=== PATIENT | female | born 1975 | race Caucasian/White ===

== ENCOUNTER → 2016-05-03 | Outpatient (CLI) | payer OTHER | LOC: YCFC.O 08:01 | PROVIDERS: ATTEND Nurse Practitioner Family | DX: D64.9 Anemia, unspecified (principal) ==

== ENCOUNTER → 2016-05-07 | Outpatient (CLI) | payer OTHER ==
--- NOTE | 2016-05-07 12:07 | RAD ---
EXAM DESCRIPTION: Bilateral hip series CLINICAL HISTORY: Bilateral hip pain COMPARISON: None. TECHNIQUE: Two views of the bilateral hips are submitted for interpretation. FINDINGS: Joint spaces are preserved. There is no fracture, dislocation, obvious joint effusion or suspicious radiopaque foreign body. Soft tissues are unremarkable. IMPRESSION: No significant abnormality. Electronically signed by: Jake Hernández MD 05/07/2016 12:05
== END ==
LOC: RAD 11:31
PROVIDERS: ATTEND Nurse Practitioner Family
DX: M25.559 Pain in unspecified hip (principal)

== ENCOUNTER → 2016-05-11 | Outpatient (CLI) | payer OTHER | LOC: YCFC.O 16:46 | PROVIDERS: ATTEND Nurse Practitioner Family | DX: R50.9 Fever, unspecified (principal) ==

== ENCOUNTER → 2016-08-02 | Outpatient (CLI) | payer OTHER | LOC: YCFC.O 10:25 | PROVIDERS: ATTEND Nurse Practitioner Family | DX: D50.9 Iron deficiency anemia, unspecified (principal) ==

== ENCOUNTER 2016-09-19 21:10 | Emergency (ER) | payer OTHER ==
[2016-09-19 21:30] VITALS: TEMP 99.6; O2SAT 97
--- NOTE | 2016-09-19 21:46 | ED.PDOC ---
History of Present Illness - General Chief Complaint: Problem Stated Complaint: lower back pain Time Seen by Provider: 09/19/16 21:36 Source: patient Exam Limitations: no limitations - History of Present Illness Initial Comments: Rose Carvalho 41 y/o female stated that she had been having cramping pains both sides of her back radiating to lower abdominal area Also with frequency and burning sensation on urination going on the last 4 days. Timing/Duration: intermittent - 4 days ago, other Severity: moderate Improving Factors: nothing Worsening Factors: nothing Associated Symptoms: denies symptoms Allergies/Adverse Reactions: Allergies NO KNOWN ALLERGY Allergy (Verified 09/19/16 21:41) Home Medications: Ambulatory Orders ARIPiprazole [Abilify] 5 mg PO DAILY 09/23/14 Atenolol 100 mg PO DAILY 09/23/14 Cyclobenzaprine HCl [Flexeril] 10 mg PO TID PRN 09/23/14 Duloxetine HCl [Cymbalta] 60 mg PO DAILY 09/23/14 Ferrous Sulfate Dried [Iron Slow Release] 325 mg PO DAILY 09/23/14 Multiple Vitamin [Multivitamins] 1 ea PO DAILY 09/23/14 Buspirone HCl 15 mg PO BID 09/19/16 Lisinopril 20 mg PO DAILY 09/19/16 Meloxicam 7.5 mg PO DAILY 09/19/16 Methocarbamol [Robaxin] 750 mg PO BID #10 tab 09/19/16 Omeprazole 20 mg PO BID 09/19/16 Thyroid [[place] Thyroid] 30 mg PO DAILY 09/19/16 diphenhydrAMINE HCL [Benadryl] 25 mg PO BEDTIME #30 cap 09/19/16 Review of Systems - Review of Systems Constitutional: States: no symptoms reported EENTM: States: no symptoms reported Respiratory: States: no symptoms reported Cardiology: States: no symptoms reported Gastrointestinal/Abdominal: States: no symptoms reported Genitourinary: States: no symptoms reported Musculoskeletal: States: other - muscle cramps Skin: States: no symptoms reported Neurological: States: no symptoms reported Endocrine: States: no symptoms reported Hematologic/Lymphatic: States: no symptoms reported Past Medical History (General) - Patient Medical History Hx Seizures: No Hx Stroke: No Hx Asthma: No Hx of COPD: No Hx Cardiac Disorders: No Hx Congestive Heart Failure: No Hx Pacemaker: No Hx Hypertension: Yes Hx Thyroid Disease: Yes Hx Diabetes: No Hx MRSA: No Hx Other PMH: Yes - bipolar disorder Surgical History: appendectomy, tonsillectomy, other - Vaccination History Hx Tetanus, Diphtheria Vaccination: Yes Hx Influenza Vaccination: No - Social History Hx Tobacco Use: No Hx Alcohol Use: Yes - occ Hx Substance Use: No Hx Physical Abuse: No Hx Emotional Abuse: No Hx Suspected Abuse: No - Activities of Daily Living Grooming Ability: Independent Eating (Feeding) Ability: Independent Toileting Ability: Independent - Female History Hx Last Menstrual Period: 09/13/16 Patient : No Family Medical History - Family History Mother Family History: No Known Living Status: Still Living Hx Family Asthma: No Hx Family Congestive Heart Failure: No Hx Family Hypertension: Yes Hx Family Stroke: Yes Hx Cardiac Disease: Yes - dad-[place] 47 y/o Hx Family Diabetes: Yes Hx Family Cancer: Yes Physical Exam - Physical Exam General Appearance: Alert, Comfortable, No apparent distress Eye Exam: bilateral normal Ears, Nose, Throat: hearing grossly normal, normal pharynx, abnormal TM (L) - perforation chronic Neck: non-tender, full range of motion, supple Respiratory: chest non-tender, lungs clear, normal breath sounds, no respiratory distress Cardiovascular/Chest: normal peripheral pulses, regular rate, rhythm, no edema, no gallop, no murmur Peripheral Pulses: radial,right: 2+, radial,left: 2+ Gastrointestinal/Abdominal: normal bowel sounds, non tender, soft Back Exam: normal inspection, CVA tenderness (R), CVA tenderness (L) Extremity: normal range of motion, non-tender, normal inspection, no pedal edema , no calf tenderness Neurologic: no motor/sensory deficits, alert, normal mood/affect, oriented x 3 Skin Exam: normal color, warm/dry Lymphatic: no adenopathy Progress - Results/Orders Results/Orders: Vital Signs - 8 hr 09/19/16 21:23 Temperature 99.6 F Pulse Rate [ 94 H left] Respiratory 18 Rate Blood Pressure 154/92 [left] O2 Sat by Pulse 97 Oximetry Laboratory Results Urine Color Yellow (Yellow) 09/19/16 21:29 Urine Appearance Clear (Clear) 09/19/16 21:29 Urine pH 7.0 (4.5-7.8) 09/19/16 21:29 Ur Specific [place] 1.020 (1.005-1.030) 09/19/16 21:29 Urine Protein Negative mg/dL 09/19/16 21:29 Urine Glucose (UA) Negative mg/dL (Negative) 09/19/16 21:29 Urine Ketones Negative mg/dL (NEGATIVE) 09/19/16 21:29 Urine Blood Negative (Negative) 09/19/16 21:29 Urine Nitrite Negative 09/19/16 21:29 Urine Bilirubin Negative (NEGATIVE) 09/19/16 21:29 Urine Urobilinogen 0.2 mg/dL (0.2-1.0) 09/19/16 21:29 Ur Leukocyte Esterase Negative (Negative) 09/19/16 21:29 Urine RBC 0 /hpf 09/19/16 21:29 Urine WBC 0-1 /hpf 09/19/16 21:29 Ur Epithelial Cells 3-5 /hpf 09/19/16 21:29 Urine Bacteria Rare 09/19/16 21:29 Departure - Departure Clinical Impression: Flank strain Qualifiers: Encounter type: initial encounter Qualified Code(s): S39.011A - Strain of muscle, fascia and tendon of abdomen, initial encounter Time of Disposition: 22:10 Disposition: Discharge to Home or Self Care Condition: Fair Departure Forms: ED Discharge - Pt. Copy, Patient Portal Self Enrollment Instructions: DI for Back Strain or Sprain, Muscle Strain Referrals: Karina Mckeon NP [Primary Care Provider] - 1-2 Weeks Prescriptions: diphenhydrAMINE HCL [Benadryl] 25 mg PO BEDTIME #30 cap Methocarbamol [Robaxin] 750 mg PO BID #10 tab Home Medications: Ambulatory Orders ARIPiprazole [Abilify] 5 mg PO DAILY 09/23/14 Atenolol 100 mg PO DAILY 09/23/14 Cyclobenzaprine HCl [Flexeril] 10 mg PO TID PRN 09/23/14 Duloxetine HCl [Cymbalta] 60 mg PO DAILY 09/23/14 Ferrous Sulfate Dried [Iron Slow Release] 325 mg PO DAILY 09/23/14 Multiple Vitamin [Multivitamins] 1 ea PO DAILY 09/23/14 Buspirone HCl 15 mg PO BID 09/19/16 Lisinopril 20 mg PO DAILY 09/19/16 Meloxicam 7.5 mg PO DAILY 09/19/16 Methocarbamol [Robaxin] 750 mg PO BID #10 tab 09/19/16 Omeprazole 20 mg PO BID 09/19/16 Thyroid [[place] Thyroid] 30 mg PO DAILY 09/19/16 diphenhydrAMINE HCL [Benadryl] 25 mg PO BEDTIME #30 cap 09/19/16 Additional Instructions: Return to emergency room as needed;Follow up with primary md 09/24 call for appointment
[2016-09-19] MEDS: KETOROLAC TROMETHAMINE INJ 30 MG/ML VIAL IM ONE (22:18)
[2016-09-19] MEDS: CYCLOBENZAPRINE TAB (ER DISP) 10 MG TAB PO ONE (22:18)
[2016-09-19] MEDS: diphenhydrAMINE HCL 50 MG/ML VIAL IM ONE (22:18)
[2016-09-19 22:37] VITALS: BP 163/107
== END 2016-09-19 22:37 | disposition home or self-care (01) ==
LOC: ER 21:10
DX: S39.011A Strain of muscle, fascia and tendon of abdomen, initial encounter (principal); I10 Essential (primary) hypertension; E07.9 Disorder of thyroid, unspecified; F31.9 Bipolar disorder, unspecified; Z79.899 Other long term (current) drug therapy; X58.XXXA Exposure to other specified factors, initial encounter
CPT/HCPCS: 81001; J1200; J1885

== ENCOUNTER → 2016-10-31 | Outpatient (CLI) | payer OTHER | LOC: YCFC.O 07:57 | PROVIDERS: ATTEND Nurse Practitioner Family | DX: D50.9 Iron deficiency anemia, unspecified (principal); R25.2 Cramp and spasm; E78.2 Mixed hyperlipidemia; E03.9 Hypothyroidism, unspecified ==

== ENCOUNTER → 2016-11-13 | Outpatient (CLI) | payer OTHER | LOC: YCFC.O 11:33 | PROVIDERS: ATTEND Nurse Practitioner Family | DX: R30.0 Dysuria (principal) ==

== ENCOUNTER 2017-01-17 19:23 | Emergency (ER) | payer OTHER ==
[2017-01-17 19:39] VITALS: O2SAT 98
[2017-01-17] MEDS ORDERED: MECLIZINE HCL 12.5 MG TAB PO ONE (19:41)
[2017-01-17] MEDS ORDERED: cloNIDine HCL 0.1 MG TAB PO ONE (19:41)
--- NOTE | 2017-01-17 20:22 | CT ---
EXAM DESCRIPTION: Head CLINICAL HISTORY: dizziness, headache, hx of sinusitis chronic COMPARISON: None Available. TECHNIQUE: Contiguous axial images of the brain were obtained without the administration of intravenous contrast. This exam was performed according to our departmental dose-optimization program, which includes automated exposure control, adjustment of the mA and/or kV according to patient size and/or use of iterative reconstruction technique. FINDINGS: There is no acute intracranial hemorrhage or mass effect. Ventricular system is within normal limits. There is adequate juarez-white matter differentiation. There is no skull fracture. There is mucoperiosteal thickening of the paranasal sinuses compatible chronic sinusitis changes. There is evidence of prior left mastoidectomy. Focal opacification within the left mastoid air cells could be related to prior surgery. IMPRESSION: No acute intracranial abnormalities. Chronic sinusitis changes. Electronically signed by: Colby Hollingsworth MD 01/17/2017 8:21 PM CDT
[2017-01-17] MEDS ORDERED: predniSONE 20 MG TAB PO ONE (20:41)
--- NOTE | 2017-01-17 20:49 | ED.PDOC ---
History of Present Illness - General Chief Complaint: Headache Stated Complaint: headache and dizziness Time Seen by Provider: 01/17/17 19:30 Source: patient Exam Limitations: no limitations - History of Present Illness Initial Comments: the patient is a 41-year-old female presenting to the emergency room secondary to headache and dizziness. This is been going on for about 6 hours. She reports some difficulty being able to focus. Blood pressures are in the 160s to 170s on the systolic end. She does have a history of significant hypertension and does take 2 medications for it. No syncope or near syncope. No falls. No focal neurological deficits otherwise. She does have a history of chronic sinusitisand she has had a surgery for a left mastoiditis in the past. Timing/Duration: 4-6 hours Severity: mild Improving Factors: nothing Worsening Factors: nothing Associated Symptoms: denies symptoms Allergies/Adverse Reactions: Allergies NO KNOWN ALLERGY Allergy (Verified 09/19/16 21:41) Home Medications: Ambulatory Orders ARIPiprazole [Abilify] 5 mg PO DAILY 09/23/14 Atenolol 100 mg PO DAILY 09/23/14 Cyclobenzaprine HCl [Flexeril] 10 mg PO TID PRN 09/23/14 Duloxetine HCl [Cymbalta] 60 mg PO DAILY 09/23/14 Ferrous Sulfate Dried [Iron Slow Release] 325 mg PO DAILY 09/23/14 Multiple Vitamin [Multivitamins] 1 ea PO DAILY 09/23/14 Buspirone HCl 15 mg PO BID 09/19/16 Lisinopril 20 mg PO DAILY 09/19/16 Meloxicam 7.5 mg PO DAILY 09/19/16 Omeprazole 20 mg PO BID 09/19/16 Thyroid [[place] Thyroid] 30 mg PO DAILY 09/19/16 levoFLOXacin [Levaquin] 500 mg PO DAILY #7 tab 01/17/17 predniSONE [Prednisone] 20 mg PO DAILY #7 tab 01/17/17 Review of Systems - Review of Systems Constitutional: States: malaise EENTM: States: see HPI Respiratory: States: no symptoms reported Cardiology: States: no symptoms reported Gastrointestinal/Abdominal: States: no symptoms reported Genitourinary: States: no symptoms reported Musculoskeletal: States: no symptoms reported Skin: States: no symptoms reported Neurological: States: anxiety, other - izziness Endocrine: States: no symptoms reported All other Systems: No Change from Baseline Past Medical History (General) - Patient Medical History Hx Seizures: No Hx Stroke: No Hx Asthma: No Hx of COPD: No Hx Cardiac Disorders: No Hx Congestive Heart Failure: No Hx Pacemaker: No Hx Hypertension: Yes Hx Thyroid Disease: Yes Hx Diabetes: No Hx MRSA: No Surgical History: appendectomy, tonsillectomy - Vaccination History Hx Tetanus, Diphtheria Vaccination: No Hx Influenza Vaccination: No Hx Pneumococcal Vaccination: No Immunizations Up to Date: Yes - Social History Hx Tobacco Use: No Hx Alcohol Use: No Hx Substance Use: No Hx Depression: Yes Hx Physical Abuse: No Hx Emotional Abuse: No Hx Suspected Abuse: No - Female History Patient is a Female of Child Bearing Age (10 -59 yrs old): Yes Hx Last Menstrual Period: 09/13/16 Patient : No Family Medical History - Family History Mother Family History: No Known Living Status: Still Living Hx Family Asthma: No Hx Family Congestive Heart Failure: No Hx Family Hypertension: Yes Hx Family Stroke: Yes Hx Cardiac Disease: Yes - dad-[place] 47 y/o Hx Family Diabetes: Yes Hx Family Cancer: Yes Physical Exam - Physical Exam General Appearance: Alert, Comfortable, No apparent distress Eye Exam: bilateral normal - this diagnosis does not appear significantly abnormal. Ears, Nose, Throat: hearing grossly normal, normal pharynx, other - left tympanic membrane is scarred from previousruptures. Neck: full range of motion, supple Respiratory: chest non-tender, lungs clear, normal breath sounds, no respiratory distress, no accessory muscle use Cardiovascular/Chest: normal peripheral pulses, regular rate, rhythm, no edema Peripheral Pulses: radial,right: 2+, radial,left: 2+, dorsalis pedis,right: 2+, dorsalis pedis,left: 2+ Gastrointestinal/Abdominal: non tender, soft Rectal Exam: deferred Extremity: non-tender, normal inspection, no pedal edema, normal capillary refill Neurologic: no motor/sensory deficits, alert, normal mood/affect, oriented x 3, other - HINTS exam is positive for lateralizing to the left on the head impulse test. No vertical skew deviation is present. Nystagmus appears grossly normal. Skin Exam: normal color Comments: Vital Signs - 8 hr 01/17/17 01/17/17 19:36 20:24 Temperature 98.5 F Pulse Rate [ 90 99 H Left Radial] Respiratory 18 18 Rate Blood Pressure 158/104 162/111 [Left Arm] O2 Sat by Pulse 98 98 Oximetry Progress - Progress Progress: 01/17/17 20:51 the patient's a 41-year-old female presenting with what is most likely an acute vestibular syndrome. The patient does have chronic sinusitis. The patient will be placed on prednisone and Levaquin for the next week. Meclizine will also be written for dizziness for as needed use. She needs to follow up with her primary care doctor next week. ER warnings were given. - Results/Orders Results/Orders: Laboratory Tests 01/17/17 01/17/17 01/17/17 19:45 19:45 19:51 WBC 8.1 RBC 3.87 L Hgb 10.9 L Hct 31.8 L MCV 82.1 MCH 28.1 MCHC 34.3 RDW 13.7 Plt Count 288 MPV 7.5 Absolute Neuts (auto) 5.00 Absolute Lymphs (auto) 2.20 Absolute Monos (auto) 0.50 Absolute Eos (auto) 0.20 Absolute Basos (auto) 0.10 Neutrophils % 62.2 Lymphocytes % 27.5 Monocytes % 6.5 Eosinophils % 2.7 Basophils % 1.1 Sodium Potassium Chloride Carbon Dioxide Anion Gap BUN Creatinine BUN/Creatinine Ratio Random Glucose Serum Osmolality Calcium Magnesium Total Bilirubin AST ALT Alkaline Phosphatase Serum Total Protein Albumin Globulin Albumin/Globulin Ratio Urine Color Yellow Urine Appearance Clear Urine pH 5.5 Ur Specific [place] 1.025 Urine Protein Trace Urine Glucose (UA) Negative Urine Ketones Negative Urine Blood Trace-intact H Urine Nitrite Negative Urine Bilirubin Negative Urine Urobilinogen 0.2 Ur Leukocyte Esterase Negative Urine RBC 1-3 Urine WBC 3-5 H Ur Epithelial Cells 5-10 Amorphous Sediment Trace Urine Bacteria 2+ H Urine Mucus Trace Urine HCG, Qual Negative 01/17/17 19:51 WBC RBC Hgb Hct MCV MCH MCHC RDW Plt Count MPV Absolute Neuts (auto) Absolute Lymphs (auto) Absolute Monos (auto) Absolute Eos (auto) Absolute Basos (auto) Neutrophils % Lymphocytes % Monocytes % Eosinophils % Basophils % Sodium 137 Potassium 3.7 Chloride 103 Carbon Dioxide 26 Anion Gap 11.7 L BUN 11 Creatinine 0.76 BUN/Creatinine Ratio 14.5 Random Glucose 91 Serum Osmolality 272.8 L Calcium 9.1 Magnesium 1.9 Total Bilirubin 0.4 AST 26 ALT 26 Alkaline Phosphatase 87 Serum Total Protein 7.4 Albumin 3.7 Globulin 3.7 H Albumin/Globulin Ratio 1.0 L Urine Color Urine Appearance Urine pH Ur Specific [place] Urine Protein Urine Glucose (UA) Urine Ketones Urine Blood Urine Nitrite Urine Bilirubin Urine Urobilinogen Ur Leukocyte Esterase Urine RBC Urine WBC Ur Epithelial Cells Amorphous Sediment Urine Bacteria Urine Mucus Urine HCG, Qual head CT is significant for chronic sinusitis and previous changes fromprevious mastoid surgery. No evidence of any acute stroke. Departure - Departure Clinical Impression: Acute vestibular syndrome Chronic sinusitis Qualifiers: Sinusitis location: ethmoidal Qualified Code(s): J32.2 - Chronic ethmoidal sinusitis Disposition: Discharge to Home or Self Care Condition: Fair Departure Forms: ED Discharge - Pt. Copy, Patient Portal Self Enrollment Instructions: DI for Sinusitis, DI for Vertigo Diet: regular diet Activity: increase activity as tolerated Referrals: Karina Mckeon NP [Primary Care Provider] - 1-2 Weeks Prescriptions: levoFLOXacin [Levaquin] 500 mg PO DAILY #7 tab predniSONE [Prednisone] 20 mg PO DAILY #7 tab Home Medications: Ambulatory Orders ARIPiprazole [Abilify] 5 mg PO DAILY 09/23/14 Atenolol 100 mg PO DAILY 09/23/14 Cyclobenzaprine HCl [Flexeril] 10 mg PO TID PRN 09/23/14 Duloxetine HCl [Cymbalta] 60 mg PO DAILY 09/23/14 Ferrous Sulfate Dried [Iron Slow Release] 325 mg PO DAILY 09/23/14 Multiple Vitamin [Multivitamins] 1 ea PO DAILY 09/23/14 Buspirone HCl 15 mg PO BID 09/19/16 Lisinopril 20 mg PO DAILY 09/19/16 Meloxicam 7.5 mg PO DAILY 09/19/16 Omeprazole 20 mg PO BID 09/19/16 Thyroid [[place] Thyroid] 30 mg PO DAILY 09/19/16 levoFLOXacin [Levaquin] 500 mg PO DAILY #7 tab 01/17/17 predniSONE [Prednisone] 20 mg PO DAILY #7 tab 01/17/17 Additional Instructions: the patient's a 41-year-old female presenting with what is most likely an acute vestibular syndrome. The patient does have chronic sinusitis. The patient will be placed on prednisone and Levaquin for the next week. Meclizine will also be written for dizziness for as needed use. She needs to follow up with her primary care doctor next week. ER warnings were given. blood pressures will likely remain somewhat elevated while she is having dizziness and on the prednisone.
[2017-01-17 21:08] VITALS: BP 161/103; TEMP 97.9
== END 2017-01-17 21:08 | disposition home or self-care (01) ==
LOC: ER 19:23
DX: J32.2 Chronic ethmoidal sinusitis (principal); H81.90 Unspecified disorder of vestibular function, unspecified ear; I10 Essential (primary) hypertension; E07.9 Disorder of thyroid, unspecified; F32.9 Major depressive disorder, single episode, unspecified; Z79.899 Other long term (current) drug therapy
CPT/HCPCS: 70450; 80053; 81001; 81025; 83735; 84443; 85025; J7512

== ENCOUNTER → 2017-03-18 | Outpatient (CLI) | payer OTHER | END | disposition home or self-care (01) | LOC: YCFC.O 08:08 | DX: I10 Essential (primary) hypertension (principal) ==

== ENCOUNTER → 2017-05-01 | Outpatient (CLI) | payer OTHER ==
--- NOTE | 2017-05-02 08:48 | MAM ---
EXAM DESCRIPTION: 3D Screening BILATERAL : Digital Mammography. CLINICAL HISTORY: 42 years Female SCREENING . No complaints. Remote family history of breast cancer. Postmenopausal. No HRT. COMPARISON: Baseline study at this facility. No prior reports available. Reports from prior examinations also reviewed. Report from prior examination also reviewed. TECHNIQUE: Bilateral CC and MLO projection full-field images, 3-D tomosynthesis digital mammographic technique. Also bilateral synthesized CC/ MLO full-field images . CAD not utilized. FINDINGS: The breast parenchymal density pattern is: Heterogeneously dense breast tissue, which may obscure small masses. No skin thickening or nipple retraction bilateral solitary microcalcifications. Bilateral skin calcifications. Broad area of focal asymmetry in the middle third of the left breast at the 230 clock position approximately 8 cm from the nipple. Not associated with microcalcifications. Focal area of focal asymmetry at the 1200 clock position of the right breast in the middle third approximately 6 cm from the nipple. Not associated with microcalcifications. No suspicious microcalcifications bilaterally. IMPRESSION: BI-RADS CATEGORY: 0 - INCOMPLETE- Need additional imaging evaluation. FOLLOW-UP: Recall for additional imagin-D tomosynthesis bilateral full field LM images. Followed by targeted bilateral breast ultrasound regions of interest. Written communication concerning the IMPRESSION and Follow-up, will be mailed to the patient and referring health care provider. Electronically signed by: Dilan Estrada MD 05/02/2017 8:47 AM [facility]
== END | disposition home or self-care (01) ==
LOC: MAMMO 09:00
DX: Z12.31 Encounter for screening mammogram for malignant neoplasm of breast (principal)

== ENCOUNTER → 2017-05-09 | Outpatient (CLI) | payer OTHER ==
--- NOTE | 2017-05-13 07:37 | RAD ---
EXAM DESCRIPTION: Hand,Right 3 Views CLINICAL HISTORY: PAIN IN RIGHT HAND COMPARISON: None. IMPRESSION: 3 views of the right hand show no evidence of acute fracture, focal bone destruction, or joint dislocation. Soft tissues are unremarkable. No significant joint space narrowing or periarticular erosive changes are seen. Electronically signed by: Aba Brewster MD 05/13/2017 7:36 AM [facility]
== END ==
LOC: RAD 07:58
PROVIDERS: ATTEND Orthopaedic Surgery
DX: M79.641 Pain in right hand (principal)

== ENCOUNTER → 2017-05-15 | Outpatient (CLI) | payer OTHER ==
--- NOTE | 2017-05-15 19:20 | US ---
EXAM DESCRIPTION: Breast,Bilateral: Ultrasound CLINICAL HISTORY: 42 yearsFemaleABNORMAL MAMMO COMPARISON: Digital 3-D tomosynthesis diagnostic bilateral mammography on this visit. Bilateral 3-D tomosynthesis screening study 05/02/2017. TECHNIQUE: Transcutaneous scanning of the bilateral breasts utilizing two-dimensional and Doppler modes. Scanning performed by the [facility] administrator only. FINDINGS: Scanning at the 1200 clock position of the right breast 6 cm from the nipple. Hypoechoic mass with partially circumscribed and partially lobulated borders, mostly solid. Parallel orientation and posterior acoustic enhancement features. Dimensions are 1.3 x 0.9 cm. Nonvascular. 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 Second hypoechoic solid nodule or cyst in the nearby tissues measures 5.1 x 3.7 mm. Well circumscribed margins. Parallel orientation, posterior enhancement features and nonvascular. No simple cysts. No skin changes. No large calcifications or parenchymal edema. Scanning at the 300 clock position of the left breast, 8 cm from the nipple. Hypoechoic solid mass versus slightly hypoechoic cyst. Dimensions are 5.7 x 4.2 mm. Well circumscribed margins, parallel orientation, and posterior enhancement features. Nonvascular. No discrete solid mass, simple cyst, large calcifications or parenchymal edema. No overlying skin changes or abnormal vascularity. IMPRESSION: 1. Bi-Rads Category 3: Probably Benign Findings. 2. Please refer to bilateral 3-D tomosynthesis diagnostic examination and report on this visit. The FINDINGS and the FOLLOW-UP plan were reviewed in person with the patient after the examination. Written communication explaining the IMPRESSION and FOLLOW-UP will be mailed to the patient and referring care provider. Electronically signed by: Dilan Estrada MD 05/15/2017 7:19 PM DEV MANAGER Workstation: [employer]
--- NOTE | 2017-05-16 09:26 | MAM ---
EXAM DESCRIPTION: 3D Diagnostic, Bilateral: Digital Mammography CLINICAL HISTORY: 42 yearsFemaleABNORMAL MAMMO . Bilateral focal asymmetries in the breasts.. COMPARISON: 3-D digital screening bilateral study 05/01/2017. Bilateral targeted breast ultrasound following this examination. Report from prior examination also reviewed. TECHNIQUE: Bilateral LM projection full-field images, 3-D tomosynthesis digital mammographic technique. Also bilateral synthesized LM full-field images. CAD not utilized. FINDINGS: The breast parenchymal density pattern is: Heterogeneously dense breast tissue, which may obscure small masses. No skin thickening or nipple retraction focal asymmetry is again noted in the middle third of the right breast 1200 clock position. Focus asymmetry also in the 300 clock position of the left breast. No definite mass density or microcalcifications. ULTRASOUND: Scanning at the 1200 clock position of the right breast 6 cm from the nipple. Hypoechoic mass with partially circumscribed and partially lobulated borders, mostly solid. Parallel orientation and posterior acoustic enhancement features. Dimensions are 1.3 x 0.9 cm. Nonvascular. 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 Second hypoechoic solid nodule or cyst in the nearby tissues measures 5.1 x 3.7 mm. Well circumscribed margins. Parallel orientation, posterior enhancement features and nonvascular. No simple cysts. No skin changes. No large calcifications or parenchymal edema. Scanning at the 300 clock position of the left breast, 8 cm from the nipple. Hypoechoic solid mass versus slightly hypoechoic cyst. Dimensions are 5.7 x 4.2 mm. Well circumscribed margins, parallel orientation, and posterior enhancement features. Nonvascular. No discrete solid mass, simple cyst, large calcifications or parenchymal edema. No overlying skin changes or abnormal vascularity IMPRESSION: BI-RADS CATEGORY: 3 - PROBABLY BENIGN. Management: Short interval (6-month) follow-up digital mammography and continued surveillance targeted breast ultrasound. The FINDINGS and the FOLLOW-UP plan were reviewed in person with the patient after the examination. Written communication explaining the IMPRESSION and FOLLOW-UP will be mailed to the patient and referring care provider. Electronically signed by: Dilan Estrada MD 05/16/2017 9:25 AM [facility]
== END ==
LOC: MAMMO 13:30
DX: R92.8 Other abnormal and inconclusive findings on diagnostic imaging of breast (principal)
CPT/HCPCS: 76641; 77066; G0279

== ENCOUNTER → 2017-05-28 | Outpatient (CLI) | payer OTHER | LOC: LAB.O 07:57 | DX: E78.5 Hyperlipidemia, unspecified (principal); Z68.39 Body mass index [BMI] 39.0-39.9, adult ==

== ENCOUNTER 2017-06-07 21:52 | Emergency (ER) | payer OTHER ==
--- NOTE | 2017-06-07 23:49 | ED.PDOC ---
History of Present Illness - General Chief Complaint: Upper Extremity Injury Stated Complaint: Left elbow injury--cough--congestion--fever Time Seen by Provider: 06/07/17 23:38 Source: patient Exam Limitations: no limitations - History of Present Illness Initial Comments: Rose Carvalho 42 y/o female came to er with body aches ,nasal congestion, non productive cough,both ears hurting,fever,headaches and sharp left elbow pain after she slipped and fell on the porch today .Denies any other injuries.She stated was exposed to her son with positive flu. Timing/Duration: 24 hours Severity: moderate Worsening Factors: nothing Associated Symptoms: other - see hpi Allergies/Adverse Reactions: Allergies NO KNOWN ALLERGY Allergy (Verified 06/07/17 22:18) Home Medications: Ambulatory Orders RX: ARIPiprazole [Abilify] 5 mg PO DAILY 09/23/14 RX: Atenolol 100 mg PO DAILY 09/23/14 RX: Cyclobenzaprine HCl [Flexeril] 10 mg PO TID PRN 09/23/14 RX: Duloxetine HCl [Cymbalta] 60 mg PO DAILY 09/23/14 RX: Ferrous Sulfate Dried [Iron Slow Release] 325 mg PO DAILY 09/23/14 RX: Multiple Vitamin [Multivitamins] 1 ea PO DAILY 09/23/14 RX: Buspirone HCl 15 mg PO BID 09/19/16 RX: Lisinopril 20 mg PO DAILY 09/19/16 RX: Meloxicam 7.5 mg PO DAILY 09/19/16 RX: Omeprazole 20 mg PO BID 09/19/16 Thyroid [Fletcher Thyroid] 30 mg PO DAILY 09/19/16 levoFLOXacin [Levaquin] 500 mg PO DAILY #7 tab 01/17/17 predniSONE [Prednisone] 20 mg PO DAILY #7 tab 01/17/17 Oseltamivir Capsule [Tamiflu] 75 mg PO BID 5 Days #10 capsule 06/08/17 RX: Amoxicillin [Amoxil] 1,000 mg PO BID #30 cap 06/08/17 Review of Systems - Review of Systems Constitutional: States: see HPI, fever EENTM: States: see HPI, ear pain, nose congestion Respiratory: States: cough - dry Cardiology: States: no symptoms reported Gastrointestinal/Abdominal: States: no symptoms reported Genitourinary: States: no symptoms reported Musculoskeletal: States: no symptoms reported Skin: States: no symptoms reported Neurological: States: no symptoms reported All other Systems: Reviewed and Negative, No Change from Baseline Past Medical History (General) - Patient Medical History Hx Seizures: No Hx Stroke: No Hx Dementia: No Hx Asthma: No Hx of COPD: No Hx Cardiac Disorders: No Hx Congestive Heart Failure: No Hx Pacemaker: No Hx Hypertension: Yes Hx Thyroid Disease: Yes Hx Diabetes: No Hx Gastroesophageal Reflux: Yes Hx Renal Disease: No Hx Cancer: No Hx of HIV: No Hx Hepatitis C: No Hx MRSA: No Hx Other PMH: Yes - chronic back pain Surgical History: appendectomy, tonsillectomy, other - btl,uterine ablation,low back procedure,ear surgeries - Vaccination History Hx Tetanus, Diphtheria Vaccination: No Hx Influenza Vaccination: Yes Hx Pneumococcal Vaccination: No - Social History Hx Tobacco Use: Yes Hx Alcohol Use: No Hx Substance Use: No Hx Substance Use Treatment: No Hx Depression: No Hx Physical Abuse: No Hx Emotional Abuse: No Hx Suspected Abuse: No - Female History Patient is a Female of Child Bearing Age (10 -59 yrs old): Yes - Tubal ovaiation Hx Last Menstrual Period: 09/13/16 Patient : No - Triage Comment ED Triage Comment: Presents to ER--POV--Amb---c/o lt elbow pain from fall at noon today---cough congestion fever also body aches x 2 days Family Medical History - Family History Mother Family History: No Known Living Status: Still Living Hx Family Asthma: No Hx Family Congestive Heart Failure: No Hx Family Hypertension: Yes Hx Family Stroke: Yes Hx Cardiac Disease: Yes - dad-[place] 47 y/o Hx Family Diabetes: Yes Hx Family Cancer: Yes Physical Exam - Physical Exam General Appearance: Alert, Comfortable Eye Exam: bilateral normal Ears, Nose, Throat: hearing decreased, other - 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 no drainage noted Neck: full range of motion, supple Respiratory: chest non-tender, lungs clear, normal breath sounds Cardiovascular/Chest: normal peripheral pulses, regular rate, rhythm, no murmur Peripheral Pulses: radial,right: 2+, radial,left: 2+ Gastrointestinal/Abdominal: non tender, soft, no organomegaly Extremity: non-tender, no pedal edema, no calf tenderness Skin Exam: normal color, warm/dry Progress - Progress Progress: 06/07/17 23:59 Vital Signs 06/07/17 22:20 Temperature 100.0 F H Pulse Rate [ 128 H monitor] Respiratory 20 Rate Blood Pressure 130/86 [monitor] O2 Sat by Pulse 100 Oximetry - EKG/XRAY/CT XRAY: elbow - left no fracture Departure - Departure Clinical Impression: Upper respiratory infection, acute, Exposure to the flu, Fall against object Contusion of elbow, left Qualifiers: Encounter type: initial encounter Qualified Code(s): S50.02XA - Contusion of left elbow, initial encounter Time of Disposition: :02 Disposition: Discharge to Home or Self Care Condition: Good Departure Forms: ED Discharge - Pt. Copy, Patient Portal Self Enrollment Instructions: DI for Contusion, Contusion Referrals: Bridgett Bae MD [Primary Care Provider] - 1-2 Weeks Prescriptions: RX: Amoxicillin [Amoxil] 1,000 mg PO BID #30 cap Oseltamivir Capsule [Tamiflu] 75 mg PO BID 5 Days #10 capsule Home Medications: Ambulatory Orders RX: ARIPiprazole [Abilify] 5 mg PO DAILY 09/23/14 RX: Atenolol 100 mg PO DAILY 09/23/14 RX: Cyclobenzaprine HCl [Flexeril] 10 mg PO TID PRN 09/23/14 RX: Duloxetine HCl [Cymbalta] 60 mg PO DAILY 09/23/14 RX: Ferrous Sulfate Dried [Iron Slow Release] 325 mg PO DAILY 09/23/14 RX: Multiple Vitamin [Multivitamins] 1 ea PO DAILY 09/23/14 RX: Buspirone HCl 15 mg PO BID 09/19/16 RX: Lisinopril 20 mg PO DAILY 09/19/16 RX: Meloxicam 7.5 mg PO DAILY 09/19/16 RX: Omeprazole 20 mg PO BID 09/19/16 Thyroid [Fletcher Thyroid] 30 mg PO DAILY 09/19/16 levoFLOXacin [Levaquin] 500 mg PO DAILY #7 tab 01/17/17 predniSONE [Prednisone] 20 mg PO DAILY #7 tab 01/17/17 Oseltamivir Capsule [Tamiflu] 75 mg PO BID 5 Days #10 capsule 06/08/17 RX: Amoxicillin [Amoxil] 1,000 mg PO BID #30 cap 06/08/17 Additional Instructions: follow up with primary Md 06/10/2017 as needed ;continue with rest of medications;May take Tylenol 500 mg po every 6 hours as needed for fever; Increase oral fluid intake
[2017-06-08] MEDS ORDERED: OSELTAMIVIR 75 MG CAP PO ONE (00:01)
[2017-06-08] MEDS ORDERED: AMOXICILLIN 500 MG CAP PO ONE ×2 (00:01→00:02)
--- NOTE | 2017-06-08 00:39 | RAD ---
EXAM DESCRIPTION: Elbow,Left 3 Views CLINICAL HISTORY: pain COMPARISON: None. FINDINGS: 3 views of the left elbow. No acute fracture or dislocation. No joint effusion. Normal osseous mineralization. IMPRESSION: No acute fracture or dislocation. Electronically signed by: Panchito Nettles 06/08/2017 12:38 AM [employer]
[2017-06-08 01:32] VITALS: BP 131/85; TEMP 98.2; O2SAT 96
== END 2017-06-08 01:32 | disposition home or self-care (01) ==
LOC: ER 21:52
DX: J06.9 Acute upper respiratory infection, unspecified (principal); S50.02XA Contusion of left elbow, initial encounter; I10 Essential (primary) hypertension; E07.9 Disorder of thyroid, unspecified; Z79.899 Other long term (current) drug therapy; W01.0XXA Fall on same level from slipping, tripping and stumbling without subsequent striking against object, initial encounter; Y92.89 Other specified places as the place of occurrence of the external cause

== ENCOUNTER → 2017-07-31 | Outpatient (CLI) | payer OTHER ==
--- NOTE | 2017-07-31 09:17 | RAD ---
EXAM DESCRIPTION: Hip,Left 2 Views CLINICAL HISTORY: 42 years, Female, HIP PAIN COMPARISON: None TECHNIQUE: AP and frog leg lateral views of the hip FINDINGS: 2 views of the left hip reveal no fracture or dislocation. No lytic bone lesion. There is no joint space narrowing observed. Mild degenerative changes at the left SI joint. IMPRESSION: Negative for fracture or dislocation. Electronically signed by: Kimani Muller MD 07/31/2017 9:16 AM CDT
== END ==
LOC: LAB.O 07:59
PROVIDERS: ATTEND Nurse Practitioner Family
DX: M25.552 Pain in left hip (principal); I10 Essential (primary) hypertension; R94.5 Abnormal results of liver function studies; Z13.220 Encounter for screening for lipoid disorders

== ENCOUNTER → 2017-08-23 | Outpatient (CLI) | payer OTHER | LOC: LAB.O 07:20 | DX: E78.5 Hyperlipidemia, unspecified (principal); R73.01 Impaired fasting glucose ==

== ENCOUNTER → 2017-08-30 | Outpatient (CLI) | payer OTHER ==
--- NOTE | 2017-08-31 06:52 | RAD ---
EXAM DESCRIPTION: Chest,2 Views CLINICAL HISTORY: CHEST PAIN R07.9 COMPARISON: January 07, 2013 two-view chest x-ray TECHNIQUE: PA/lateral FINDINGS: There is no acute appearing cardiac or pulmonary abnormality. Heart size is normal with normal pulmonary vascularity. No pleural effusion or pneumothorax. Lungs are clear with no consolidating infiltrate. Lateral view shows intact sternum and T-spine. IMPRESSION: No acute process is identified in the chest. Electronically signed by: Kimani Muller MD 08/31/2017 6:50 AM CDT
== END ==
LOC: YCFC.O 09:53
PROVIDERS: ATTEND Nurse Practitioner Family
DX: R07.9 Chest pain, unspecified (principal)

== ENCOUNTER → 2017-09-04 | Outpatient (CLI) | payer OTHER ==
--- NOTE | 2017-09-05 08:23 | US ---
THYROID ULTRASOUND CLINICAL INFORMATION: E04.1: Nontoxic single thyroid nodule. TECHNIQUE: Routine transcutaneous scannin-D and Doppler modes. COMPARISON: Ultrasound thyroid 01/09/2013. FINDINGS: Thyroid size: Right 4.2 x 2.1 x 1.9 cm. Left 4.0 x 2.3 x 1.8 cm. Isthmus 5 mm thickness. Texture: Heterogeneous. Estimated total number of nodules >/=1 cm: 0 Number of spongiform nodules >/=2 cm not described below (TR1): 0 Number of mixed cystic and solid nodules >/=1.5 cm not described below (TR2): 0 Nodule #: 1 Maximum size: 0.5 cm; All dimensions 0.4 x 0.3 cm Location: left; lower Composition: solid/almost completely solid (2) Echogenicity: hypoechoic (2) Shape: not [id number] (0) Margins: ill-defined (0) Echogenic foci: none (0) ACR TI-RADS total points: 4. ACR TI-RADS risk category: TR4 (4-6 points) Significant change in size (>/= 20% in two dimensions and minimal increase of 2 mm): No Change in features: No Change in ACR TI-RADS risk category: No ACR TI-RADS recommendation: Follow-up ultrasound in 1 year Nodule #: 2 Maximum size: 0.7 cm; All dimensions 0.7 x 0.6 cm Location: left; lower Composition: solid/almost completely solid (2) Echogenicity: very hypoechoic (3) Shape: not [id number] (0) Margins: ill-defined (0) Echogenic foci: none (0) ACR TI-RADS total points: 5. ACR TI-RADS risk category: TR4 (4-6 points) Significant change in size (>/= 20% in two dimensions and minimal increase of 2 mm): Yes Change in features: Yes Change in ACR TI-RADS risk category: Yes ACR TI-RADS recommendation: Follow-up ultrasound in 1 year In the tissue surrounding the thyroid gland, no distinct mass or cyst. No parenchymal edema or large calcification. No overlying skin changes. No abnormal vascularity. IMPRESSION: 1. Hypoechoic solid nodule (# 2) in the lower left lobe measures 7 mm. Change in size and appearance since the prior study in 2012. ACR TI RADS risk category TR 4. Because of change since the prior study, ultrasound follow-up in one year is recommended. Please see below. 2. Hypoechoic solid nodule in the lower left lobe(#1) measures 5 mm. Not seen on the prior study in 2012. ACR TI RADS risk category TR 4. Because it is a new nodule, ultrasound follow-up in one year is recommended. 3. Soft tissue around the thyroid gland is unremarkable. ACR TI-RADS recommendations: TR5 (>/=7 points) - FNA if >/=1 cm, follow-up if 0.5 - 0.9 cm every year for 5 years TR4 (4-6 points) - FNA if >/=1.5 cm, follow-up if 1 - 1.4 cm in 1, 2, 3 and 5 years TR3 (3 points) - FNA if >/=2.5 cm, follow -up if 1.5 - 2.4 cm in 1, 3 and 5 years TR2 (2 points) and TR1 (0 points) - No FNA or follow-up * ACR TI-RADS recommends that no more than two nodules with the highest ACR TI-RADS total point should be biopsied and no more than four nodules should be followed. Electronically signed by: Dilan Estrada MD 09/05/2017 8:21 AM CDT
== END ==
LOC: US 11:00
PROVIDERS: ATTEND Obstetrics & Gynecology
DX: E04.1 Nontoxic single thyroid nodule (principal)

== ENCOUNTER 2017-09-26 14:07 | Emergency (ER) | payer OTHER ==
[2017-09-26 14:49] VITALS: TEMP 99.8
[2017-09-26] MEDS ORDERED: LACTATED RINGERS 1,000 ML IVS ONE (15:36)
[2017-09-26] MEDS ORDERED: ONDANSETRON INJ 4 MG/2 ML VIAL IV ONE (15:36)
[2017-09-26] MEDS ORDERED: PROMETHAZINE HCL INJ 25 MG/ML VIAL IM ONE (15:57)
[2017-09-26] MEDS ORDERED: MORPHINE SULFATE INJ 10 MG/ML VIAL IV ONE (15:57)
--- NOTE | 2017-09-26 16:03 | ED.PDOC ---
History of Present Illness - General Chief Complaint: Abdominal Pain Stated Complaint: R abdominal discomfort Time Seen by Provider: 09/26/17 15:45 Source: patient Exam Limitations: no limitations - History of Present Illness Initial Comments: Rose Carvalho 42 y/o female came to ER with watery diarrhea ,nausea and RLQ discomfort for the last 2 days.No fever ,chills,no ill contact,no foreign travel. Timing/Duration: other - see hpi Severity: moderate Improving Factors: nothing Worsening Factors: eating Associated Symptoms: other - see hpi Allergies/Adverse Reactions: Allergies NO KNOWN ALLERGY Allergy (Verified 09/26/17 14:48) Home Medications: Ambulatory Orders ARIPiprazole [Abilify] 5 mg PO DAILY 09/23/14 Atenolol 100 mg PO DAILY 09/23/14 Cyclobenzaprine HCl [Flexeril] 10 mg PO TID PRN 09/23/14 Duloxetine HCl [Cymbalta] 60 mg PO DAILY 09/23/14 Ferrous Sulfate Dried [Iron Slow Release] 325 mg PO DAILY 09/23/14 Multiple Vitamin [Multivitamins] 1 ea PO DAILY 09/23/14 Buspirone HCl 15 mg PO BID 09/19/16 Lisinopril 20 mg PO DAILY 09/19/16 Meloxicam 7.5 mg PO DAILY 09/19/16 Omeprazole 20 mg PO BID 09/19/16 Thyroid [Barker Thyroid] 30 mg PO DAILY 09/19/16 levoFLOXacin [Levaquin] 500 mg PO DAILY #7 tab 01/17/17 predniSONE [Prednisone] 20 mg PO DAILY #7 tab 01/17/17 Amoxicillin [Amoxil] 1,000 mg PO BID #30 cap 06/08/17 Oseltamivir Capsule [Tamiflu] 75 mg PO BID 5 Days #10 capsule 06/08/17 Acetaminophen W/ Codeine [Tylenol W/ CODEINE #3] 1 ea PO TID PRN #10 09/26/17 Promethazine Tab [Phenergan Tablet] 25 mg PO .Q4H PRN #7 tab 09/26/17 Review of Systems - Review of Systems Constitutional: States: no symptoms reported EENTM: States: no symptoms reported Respiratory: States: no symptoms reported Cardiology: States: no symptoms reported Gastrointestinal/Abdominal: States: see HPI Neurological: States: emotional problems All other Systems: Reviewed and Negative, No Change from Baseline Past Medical History (General) - Patient Medical History Hx Seizures: No Hx Stroke: No Hx Dementia: No Hx Asthma: No Hx of COPD: No Hx Cardiac Disorders: No Hx Congestive Heart Failure: No Hx Pacemaker: No Hx Hypertension: Yes Hx Thyroid Disease: Yes Hx Diabetes: No Hx Gastroesophageal Reflux: Yes - Hx diverticulitis Hx Renal Disease: No Hx Cancer: No Hx of HIV: No Hx Hepatitis C: No Hx MRSA: No Surgical History: appendectomy, tonsillectomy - Vaccination History Hx Tetanus, Diphtheria Vaccination: No Hx Influenza Vaccination: Yes - 2016 Hx Pneumococcal Vaccination: No - Social History Hx Tobacco Use: - Quit 07/2017 Hx Alcohol Use: No Hx Substance Use: No Hx Substance Use Treatment: No Hx Depression: No Hx Physical Abuse: No Hx Emotional Abuse: No Hx Suspected Abuse: No - Female History Patient is a Female of Child Bearing Age (10 -59 yrs old): Yes Hx Last Menstrual Period: 09/13/16 Patient : No Family Medical History - Family History Mother Family History: No Known Living Status: Still Living Hx Family Asthma: No Hx Family Congestive Heart Failure: No Hx Family Hypertension: Yes Hx Family Stroke: Yes Hx Cardiac Disease: Yes - dad-[place] 47 y/o Hx Family Diabetes: Yes Hx Family Cancer: Yes - breast Physical Exam - Physical Exam General Appearance: Alert, Comfortable, No apparent distress Eye Exam: bilateral normal Ears, Nose, Throat: hearing grossly normal, normal ENT inspection Neck: supple Respiratory: chest non-tender, lungs clear Cardiovascular/Chest: normal peripheral pulses, regular rate, rhythm, no murmur Peripheral Pulses: radial,right: 2+, radial,left: 2+ Gastrointestinal/Abdominal: normal bowel sounds, soft, tenderness - rlq ,no peritoneal signs Back Exam: no vertebral tenderness Extremity: no pedal edema, no calf tenderness Neurologic: alert, oriented x 3 Skin Exam: normal color, warm/dry Progress - Progress Progress: 09/26/17 16:05 Vital Signs - 8 hr 09/26/17 14:42 Temperature 99.8 F H Pulse Rate [ 88 Left Radial] Respiratory 18 Rate Blood Pressure 112/60 [Left Arm] O2 Sat by Pulse 96 Oximetry - Results/Orders Results/Orders: Vital Signs - 8 hr 09/26/17 09/26/17 09/26/17 14:42 15:41 16:39 Temperature 99.8 F H Pulse Rate [ 88 84 81 Left Radial] Respiratory 18 18 18 Rate Blood Pressure 112/60 122/78 123/85 [Left Arm] O2 Sat by Pulse 96 94 L 97 Oximetry 09/26/17 15:56 CLOSTRIDIUM DIFFICILE AG/TOXIN Urgent 09/26/17 16:07 URINALYSIS Stat Laboratory Results - last 24 hr 09/26/17 09/26/17 09/26/17 15:00 15:05 15:05 WBC 9.3 RBC 3.80 L Hgb 11.6 L Hct 33.4 L MCV 87.8 MCH 30.5 MCHC 34.7 RDW 12.6 Plt Count 276 MPV 8.3 Absolute Neuts (auto) 5.50 Absolute Lymphs (auto) 2.40 Absolute Monos (auto) 0.70 Absolute Eos (auto) 0.70 H Absolute Basos (auto) 0.10 Neutrophils % 59.1 Lymphocytes % 25.7 Monocytes % 7.1 Eosinophils % 7.1 H Basophils % 1.0 Sodium 139 Potassium 3.6 Chloride 104 Carbon Dioxide 27 Anion Gap 11.6 L BUN 10 Creatinine 0.63 BUN/Creatinine Ratio 15.9 Random Glucose 72 Serum Osmolality 275.1 Calcium 9.4 Total Bilirubin 0.2 AST 27 ALT 29 Alkaline Phosphatase 83 Serum Total Protein 7.5 Albumin 3.9 Globulin 3.6 H Albumin/Globulin Ratio 1.1 Urine Color Yellow Urine Appearance Sl cloudy Urine pH 5.5 Ur Specific [place] 1.025 Urine Protein Negative Urine Glucose (UA) Negative Urine Ketones Negative Urine Blood Moderate H Urine Nitrite Negative Urine Bilirubin Negative Urine Urobilinogen 0.2 Ur Leukocyte Esterase Negative Urine RBC 1-3 Urine WBC 0-1 Ur Epithelial Cells 1-3 Amorphous Sediment 1+ Urine Bacteria 0 Departure - Departure Clinical Impression: Diarrhea Qualifiers: Diarrhea type: unspecified type Qualified Code(s): R19.7 - Diarrhea, unspecified Abdominal pain Qualifiers: Abdominal location: right lower quadrant Qualified Code(s): R10.31 - Right lower quadrant pain Time of Disposition: 17:57 Disposition: Discharge to Home or Self Care Condition: Fair Departure Forms: ED Discharge - Pt. Copy, Patient Portal Self Enrollment Instructions: Gastroenteritis Diet Referrals: Bridgett Bae MD [Primary Care Provider] - 1-2 Weeks Prescriptions: Acetaminophen W/ Codeine [Tylenol W/ CODEINE #3] 1 ea PO TID PRN #10 PRN Reason: Pain Promethazine Tab [Phenergan Tablet] 25 mg PO .Q4H PRN #7 tab PRN Reason: Nausea Home Medications: Ambulatory Orders ARIPiprazole [Abilify] 5 mg PO DAILY 09/23/14 Atenolol 100 mg PO DAILY 09/23/14 Cyclobenzaprine HCl [Flexeril] 10 mg PO TID PRN 09/23/14 Duloxetine HCl [Cymbalta] 60 mg PO DAILY 09/23/14 Ferrous Sulfate Dried [Iron Slow Release] 325 mg PO DAILY 09/23/14 Multiple Vitamin [Multivitamins] 1 ea PO DAILY 09/23/14 Buspirone HCl 15 mg PO BID 09/19/16 Lisinopril 20 mg PO DAILY 09/19/16 Meloxicam 7.5 mg PO DAILY 09/19/16 Omeprazole 20 mg PO BID 09/19/16 Thyroid [Barker Thyroid] 30 mg PO DAILY 09/19/16 levoFLOXacin [Levaquin] 500 mg PO DAILY #7 tab 01/17/17 predniSONE [Prednisone] 20 mg PO DAILY #7 tab 01/17/17 Amoxicillin [Amoxil] 1,000 mg PO BID #30 cap 06/08/17 Oseltamivir Capsule [Tamiflu] 75 mg PO BID 5 Days #10 capsule 06/08/17 Acetaminophen W/ Codeine [Tylenol W/ CODEINE #3] 1 ea PO TID PRN #10 09/26/17 Promethazine Tab [Phenergan Tablet] 25 mg PO .Q4H PRN #7 tab 09/26/17 Additional Instructions: Follow up with primary Md 27 September 2017 as needed
[2017-09-26 17:41] VITALS: BP 123/85; O2SAT 97
== END 2017-09-26 18:15 | disposition home or self-care (01) ==
LOC: ER 14:07
DX: R10.31 Right lower quadrant pain (principal); R19.7 Diarrhea, unspecified; R11.0 Nausea; K21.9 Gastro-esophageal reflux disease without esophagitis; I10 Essential (primary) hypertension; E07.9 Disorder of thyroid, unspecified; Z90.49 Acquired absence of other specified parts of digestive tract; Z79.899 Other long term (current) drug therapy; Z87.19 Personal history of other diseases of the digestive system; Z87.891 Personal history of nicotine dependence
CPT/HCPCS: 36415; 80053; 81001; 85025; J2270; J2405; J2550; J7120

== ENCOUNTER → 2018-01-01 | Outpatient (CLI) | payer OTHER ==
--- NOTE | 2018-01-01 16:44 | US ---
EXAM DESCRIPTION: Breast,Right: Ultrasound CLINICAL HISTORY: 42 yearsFemale6 MONTH FOLLOW UP focal asymmetry in mass right breast. COMPARISON: Digital diagnostic tomosynthesis and 2-D mammogram right breast on this visit. Bilateral breast ultrasound 05/15/2017. TECHNIQUE: Transcutaneous scanning of the right breast utilizing juarez-scale and Doppler modes. Scanning performed by the footwear sales representative and Dr. Estrada. FINDINGS: Scanning of the anterior superior right breast, with emphasis on the 1200 clock position, 6 cm from the nipple. The hypoechoic solid mass seen on the prior study was not identified on this study. Taking oval-shaped hypoechoic versus anechoic object is seen in the adjacent soft tissues measures 4.4 x 5.7 mm. Parallel orientation with posterior enhancement features. Nonvascular. Probably complicated cyst, fibroadenoma, or small lymph node. No distinct solid mass or cyst. No parenchymal edema or large calcifications. No overlying skin changes. No abnormal vascularity. IMPRESSION: 1. Bi-Rads Category 2: Benign. 2. Diagnostic right digital breast tomosynthesis with 2-D images and report on this visit. The FINDINGS and the FOLLOW-UP plan were reviewed in person with the patient after the examination. Written communication explaining the IMPRESSION and FOLLOW-UP will be mailed to the patient and referring care provider. Electronically signed by: Dilan Estrada MD 01/01/2018 4:42 PM CDT
--- NOTE | 2018-01-02 15:42 | MAM ---
EXAM DESCRIPTION: 3D Diagnostic, Right: Digital Mammography CLINICAL HISTORY: 42 yearsFemaleABN MAMMO six-month follow-up. No complaints. No personal history of breast cancer. Remote family history of breast cancer. Childbirth. Perimenopausal. No HRT. Lifetime risk of developing breast cancer (Tyrer-Cuzick model) percentage is 13.6. COMPARISON: Bilateral diagnostic digital breast tomosynthesis 05/15/2017. Targeted breast ultrasound on the same visit. Targeted right breast ultrasound following this examination. TECHNIQUE: Right breast CC LM MLO projection full-field images, digital mammographic tomosynthesis technique. Full field 2-D digital MLO view. 2-D digital spot magnification anterior breast. CAD not utilized. FINDINGS: Right breast parenchymal density pattern is: Heterogeneously dense breast tissue, which may obscure small masses. No skin thickening or nipple retraction solitary microcalcifications. No new focal, stellate mass or density, focal asymmetry , and no suspicious microcalcifications right breast. ULTRASOUND: Scanning of the anterior superior right breast, with emphasis on the 1200 clock position, 6 cm from the nipple. The hypoechoic solid mass seen on the prior study was not identified on this study. Taking oval-shaped hypoechoic versus anechoic object is seen in the adjacent soft tissues measures 4.4 x 5.7 mm. Parallel orientation with posterior enhancement features. Nonvascular. Probably complicated cyst, fibroadenoma, or small lymph node. No distinct solid mass or cyst. No parenchymal edema or large calcifications. No overlying skin changes. No abnormal vascularity. IMPRESSION: Benign exam. BIRAD CATEGORY: 2 BENIGN FINDINGS. RECOMMENDATIONS: FOLLOW UP: Return to routine digital bilateral screening, one year interval from April 2017. (Follow-up bilateral digital mammographic screening in April 2018.) The FINDINGS and the FOLLOW-UP plan were reviewed in person with the patient after the examination. Written communication explaining the IMPRESSION and FOLLOW-UP will be mailed to the patient and referring care provider. According to the [employer], yearly mammograms are recommended starting at age 40 and continuing as long as a woman is in good health. Any breast change noted on a breast self-exam should be reported promptly to the patient's healthcare provider. Breast MRI is recommended for women with an approximately 20-25% or greater lifetime risk of breast cancer, including women with a strong family history of breast or ovarian cancer and women who have been treated for Hodgkin's disease. A negative mammographic report should not delay tissue diagnosis in patients with significant clinical history or physical findings. Extremely dense breast tissue limits the sensitivity of digital mammography. Electronically signed by: Dilan Estrada MD 01/02/2018 3:40 PM CDT
== END ==
LOC: MAMMO 11:30
PROVIDERS: ATTEND Family Medicine
DX: R92.8 Other abnormal and inconclusive findings on diagnostic imaging of breast (principal)
CPT/HCPCS: 76641; 77065; G0279

== ENCOUNTER → 2018-06-06 | Outpatient (CLI) | payer OTHER ==
--- NOTE | 2018-06-09 15:25 | MAM ---
EXAM DESCRIPTION: 3D Screening BILATERAL : Digital Mammography. CLINICAL HISTORY: 43 years Female SCREENING . No complaints or personal history of breast cancer. Remote family history of breast cancer. Childbirth. Premenopausal. No HRT. Lifetime risk of developing breast cancer (Tyrer-Cuzick model)(%): 13.5. COMPARISON: prior. No prior reports available. TECHNIQUE: Bilateral CC and MLO projection full-field images, digital tomosynthesis mammographic technique. Bilateral digital 2-D full-field MLO images. CAD not available for tomosynthesis or 2-D images. FINDINGS: The breast parenchymal density pattern is: Heterogeneously dense breast tissue, which may obscure small masses. . Stable bilateral solitary microcalcifications. Left axillary lymph node. No new focal, stellate mass or density, focal asymmetry , and no suspicious microcalcifications bilaterally. Stable mammograms compared to prior study. IMPRESSION: Benign exam. BIRAD CATEGORY: 2 BENIGN FINDINGS. RECOMMENDATIONS: FOLLOW UP: Routine digital bilateral mammographic screening, one year interval from May 2018. Written communication explaining the IMPRESSION and follow-up, will be mailed to the patient and referring health care provider. According to the [employer], yearly mammograms are recommended starting at age 40 and continuing as long as a woman is in good health. Any breast change noted on a breast self-exam should be reported promptly to the patient's healthcare provider. Breast MRI is recommended for women with an approximately 20-25% or greater lifetime risk of breast cancer, including women with a strong family history of breast or ovarian cancer and women who have been treated for Hodgkin's disease. A negative mammographic report should not delay tissue diagnosis in patients with significant clinical history or physical findings. Extremely dense breast tissue limits the sensitivity of digital mammography. Electronically signed by: Dilan Estrada MD 06/09/2018 3:21 PM MUSHROOM CUTTER
== END ==
LOC: MAMMO 11:04
PROVIDERS: ATTEND General Practice
DX: Z12.31 Encounter for screening mammogram for malignant neoplasm of breast (principal)

== ENCOUNTER → 2018-10-21 | Outpatient (CLI) | payer OTHER | LOC: ECHO 13:00 | PROVIDERS: ATTEND General Practice | DX: R60.9 Edema, unspecified (principal) ==

== ENCOUNTER → 2019-01-14 | Outpatient (CLI) | payer OTHER | LOC: LAB.O 09:09 | PROVIDERS: ATTEND Nurse Practitioner Family | DX: M25.50 Pain in unspecified joint (principal); R73.9 Hyperglycemia, unspecified ==

== ENCOUNTER → 2019-03-25 | Outpatient (CLI) | payer OTHER ==
--- NOTE | 2019-03-25 13:18 | US ---
EXAM DESCRIPTION: Gall Bladder: ULTRASOUND. CLINICAL HISTORY: CHRONIC CHOLECYSTITIS COMPARISON: None. TECHNIQUE: Transabdominal scanning: Mitchell-scale and Doppler modes.. Technically difficult study due to patient large body habitus. FINDINGS: Gallbladder: normal size, shape, echogenicity; no intraluminal stones or sludge. No fluid around the gallbladder. No wall thickening. 2.4 mm. Non-tender with transducer pressure. Common bile duct: caliber 3.2 mm within normal limits. Liver: Diffusely dense echogenicity; difficult visualization of the posterior liver and capsule. Contour liver capsule smooth where seen. No fluid around the liver. Intrahepatic biliary ducts normal caliber. Doppler hepatopedal flow portal vein.. Long axis right lobe 19.5 cm. Pancreas: normal size and echogenicity. Duct not seen. Aorta: 1.8 cm proximally normal caliber. Right kidney: 10.6 cm long axis. Normal cortical thickness and echogenicity. No echogenic stones or hydronephrosis.. IMPRESSION: Technically difficult study due to patient large body habitus. Fatty dense liver with difficulty in visualizing posterior liver and capsule and tissues posterior to the liver. Smooth capsule where seen with no ascites. Physiologic vascularity and normal caliber of intrahepatic ducts. Gallbladder, common bile duct, and right kidney are unremarkable. Pancreas is negative. Electronically signed by: Dilan Estrada MD 03/25/2019 1:16 PM DEVELOPMENT AND HOUSING DIRECTOR
== END ==
LOC: US 08:30
PROVIDERS: ATTEND Emergency Medicine
DX: K81.1 Chronic cholecystitis (principal); K76.0 Fatty (change of) liver, not elsewhere classified

== ENCOUNTER → 2019-04-13 | Outpatient (CLI) | payer OTHER ==
--- NOTE | 2019-04-13 11:56 | RAD ---
EXAM DESCRIPTION: Pelvis CLINICAL HISTORY: 44 years Female, HIP PAIN RIGHT COMPARISON: None. TECHNIQUE: AP radiograph of the pelvis was performed. FINDINGS: The pelvic ring appears grossly intact on this single AP radiograph. No acute fracture or dislocation. Bilateral sacroiliac joints appear normal. Mild degenerative changes are noted in both hip joints. The visualized lumbo-sacral spine demonstrates mild degenerative changes. IMPRESSION: Single AP radiograph of the pelvis demonstrates grossly intact pelvic ring. Mild bilateral hip osteoarthritis. Electronically signed by: Maribel Singh MD 04/13/2019 11:55 AM [facility]
--- NOTE | 2019-04-13 11:58 | RAD ---
EXAM DESCRIPTION: Hip,Right 2 Views CLINICAL HISTORY: 44 years Female, PAIN IN RIGHT HIP COMPARISON: None available. FINDINGS: The visualized bones are well-mineralized.No acute fracture or dislocation. Mild degenerative changes. The soft tissues appear grossly unremarkable. IMPRESSION: Mild right hip osteoarthritis. Electronically signed by: Maribel Singh MD 04/13/2019 11:57 AM [employer] CLERK
== END ==
LOC: RAD 10:21
PROVIDERS: ATTEND Orthopaedic Surgery
DX: M16.0 Bilateral primary osteoarthritis of hip (principal)

== ENCOUNTER → 2019-09-17 | Outpatient (CLI) | payer OTHER ==
--- NOTE | 2019-09-17 11:07 | RAD ---
EXAM DESCRIPTION: ARTHROGRAM HIP, RIGHT: Radio-Fluoroscopy. CLINICAL HISTORY: ACETABULAR LABRUM TEAR COMPARISON: MRI scan right hip May 11. Right hip radiographs March 2019. TECHNIQUE: The procedure was explained to the patient with risks and benefits. The patient understood and gave verbal and written consent. 5 cc of nonionic contrast in one syringe; a contrast mixture of 10 cc nonionic contrast, 10 cc of sterile normal saline, and 0.1 cc of gadolinium was prepared in a second syringe. The patient is supine on the fluoroscopic table. Right hip in internal rotation. The right hip joint was localized by fluoroscopy. The skin overlying the base of the right femoral neck was marked and prepped with Betadine and sterile drape. Anesthetic was given sub-cutaneously and intradermally. Under fluoroscopic visualization, a 22-gauge spinal needle was introduced into the junction of the right femoral neck and head, A test injection of 3 cc of the contrast only was performed into the inferior joint capsule. An additional 10 cc of the contrast mixture was injected. The patient performed active exercise. The patient was transferred to the high field MRI suite for multiplanar, multi-sequence scanning. There were no immediate complications. Single AP image of the right hip in internal rotation was recorded. Fluoroscopy time was 1.1 minute . DAP: 8.81 Gy-cm2. IMPRESSION: Successful, fluoroscopic-guided injection of saline, non-ionic contrast, and gadolinium into right hip joint, followed by MRI scan. Permanent images from this procedure are maintained in the patient's medical record. Electronically signed by: Dilan Estrada MD 09/17/2019 11:05 AM CDT
--- NOTE | 2019-09-17 11:18 | MRI ---
Study: MRI Arthrogram of the Right Hip. Indication: ACETABULAR LABRUM TEAR Technique: Multiplanar, multi sequence MRI of the right hip was obtained after intra-articular injection of contrast. Please see dedicated procedural report for additional details. Comparison: May 11, 2019. Findings: Grade 2 and 3 chondral thinning throughout the right hip joint with changes most pronounced anterosuperiorly and posteriorly. Tiny joint line osteophytes. Tiny joint effusion. No acute fracture or osteonecrosis. High-grade undersurface tearing of the anterior superior right hip labrum noted at the 2:00 to 1:00 position with a tiny cam lesion. No significant labral truncation. Labral/acetabular coverage over noted superiorly. Tendinosis right gluteus minimus/medius tendon insertions with significant edema along the inferolateral margin of the right gluteus medius muscle immediately deep to the iliotibial tract which can indicate iliotibial friction at this site as well as a gluteus medius muscle strain. No tear defect. Tendinosis right hamstring tendon origin . Impression: Mild right hip osteoarthritis with high-grade undersurface tearing of the anterior superior right hip labrum. 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 No acute fracture or osteonecrosis. Additional stable findings as above. Electronically signed by: Stephen Shelton MD 09/17/2019 11:16 AM CDT
== END ==
LOC: MRI 08:02
PROVIDERS: ATTEND Orthopaedic Surgery
DX: M24.151 Other articular cartilage disorders, right hip (principal); M16.11 Unilateral primary osteoarthritis, right hip

== ENCOUNTER 2019-10-05 05:27 | Day surgery (SDC) | payer OTHER ==
[2019-10-05] MEDS ORDERED: LACTATED RINGERS 1,000 ML ONE (06:34)
[2019-10-05] MEDS ORDERED: methylPREDNISolone ACETATE 80 MG/ML VIAL ONE (06:44)
[2019-10-05] MEDS ORDERED: LIDOCAINE 1% W/ EPINEPHRINE 20 ML VIAL INJ ONE (06:45)
[2019-10-05] MEDS ORDERED: BUPIVACAINE 0.25% INJ 30 ML VIAL INJ ONE (06:45)
[2019-10-05 08:48] VITALS: BP 138/88; TEMP 98.5; O2SAT 97
[2019-10-05] MEDS ORDERED: PROPOFOL 200 MG/20 ML VIAL IV ONE (10:00)
[2019-10-05] MEDS ORDERED: LIDOCAINE 1% 10 ML VIAL INJ ONE (10:00)
--- NOTE | 2019-10-07 08:51 | RAD ---
EXAM DESCRIPTION: Fluoroscopy Up to 1Hr: RF. CLINICAL HISTORY: 44 years Female RIGHT HIP INJ fluoroscopic guided arthrogram September 16. COMPARISON: None. IMPRESSION: Single multiplanar, fluoroscopic image taken by the referring physician intraoperatively during RIGHT HIP INJ. No complicating process is demonstrated. Please refer to surgical report for specific details. Total fluoroscopic time was less than 5 seconds. Cumulative dose less than 1.46 mGy. Permanent images of this procedure are stored in the patient's medical record. Electronically signed by: Dilan Estrada MD 10/07/2019 8:49 AM CDT
--- NOTE | 2019-10-07 09:50 | OP ---
DATE OF PROCEDURE: 10/05/19 PREOPERATIVE DIAGNOSIS: 1. Right hip pain. POSTOPERATIVE DIAGNOSIS: 1. Right hip pain. PROCEDURE: 1. Intraarticular injection under anesthesia. SURGEON: Сергей Zhang MD. BELLY ROLLER: Dilan Calvo CST, SA-C. ANESTHESIA: Conscious sedation. COMPLICATIONS: None. FINDINGS: Normal appearing anatomy. INDICATION: Ms. Carvalho has a history of pain in the hip and has had multiple other interventions. Unfortunately, she has been unable to get any relief from conservative measures. Because of her ongoing pain, she has requested operative intervention. After discussing the risks, benefits and alternatives to that, the patient has given informed consent for that. PROCEDURE: The patient was brought to the Operating Room and placed in supine position. Conscious sedation was administered and the leg was flexed, abducted and externally rotated. The groin was prepped and fluoroscopic imaging was used to confirm needle placement into the hip joint through a medial portal. Once placement had been confirmed, a combination of lidocaine and Depo-Medrol were injected into the joint. After injection, the needle was withdrawn. Pressure was held on the injection site. A sterile band-aid was placed. The patient was then taken back to the Day Surgery Unit. POSTOPERATIVE PLAN: The patient will be weight-bearing as tolerated. The patient will followup with us in 2 weeks. #[id number] MTDD
== END 2019-10-05 08:40 | disposition home or self-care (01) ==
LOC: AMB 05:27
PROVIDERS: ATTEND Orthopaedic Surgery
DX: M16.11 Unilateral primary osteoarthritis, right hip (principal); I10 Essential (primary) hypertension; E11.9 Type 2 diabetes mellitus without complications; K21.9 Gastro-esophageal reflux disease without esophagitis; E66.01 Morbid (severe) obesity due to excess calories; G47.30 Sleep apnea, unspecified; D50.9 Iron deficiency anemia, unspecified; F31.9 Bipolar disorder, unspecified; E78.00 Pure hypercholesterolemia, unspecified; F17.200 Nicotine dependence, unspecified, uncomplicated; F41.9 Anxiety disorder, unspecified; Z68.42 Body mass index [BMI] 45.0-49.9, adult; Z99.89 Dependence on other enabling machines and devices; Z79.899 Other long term (current) drug therapy
CPT/HCPCS: 20610; 36416; 76000; 80307; 82948; J1030; J3490; J7120

== ENCOUNTER → 2019-10-15 | Outpatient (CLI) | payer OTHER | LOC: LAB.O 12:37 | PROVIDERS: ATTEND Internal Medicine Nephrology | DX: R94.4 Abnormal results of kidney function studies (principal) ==